=== PATIENT | male | born 1950 | race Caucasian/White ===

== ENCOUNTER → 2018-12-01 | Outpatient (REF) | payer MEDICARE ==
[~2018-12-01] MED LIST: ASPI1TAB PO; BABY81CH OR; LASI40TA9 PO; LEVO75TA4 PO; LOSA50TA88 PO; METF-723 PO; MULTCAP PO; MULTIVIT PO; PERC5TAB8 OR; PERCOCET PO; vitamin D
== END ==
LOC: M SFHCPLAZ 17:42
PROVIDERS: ATTEND Dermatology
DX: L82.1 Other seborrheic keratosis (principal); L81.4 Other melanin hyperpigmentation; L57.0 Actinic keratosis; D22.39 Melanocytic nevi of other parts of face

== ENCOUNTER 2025-07-26 07:46 | Day surgery (SDC) | payer MEDICARE ==
[~2025-07-26] VITALS: Ht 170.2 cm; Wt 77.1 kg
[~2025-07-26 07:46] MED LIST changes: -ASPI1TAB PO; +ASPI81TA26 PO; +FAMO20TA PO; +LEVO88TA3; +LIDOCAINE 2% 100 MG/5 ML SDV (FOR ANES.) As Ordered ONE; +LOSA50TA28 PO; -LOSA50TA88 PO; +METF-1201 PO; -METF-723 PO; +MULTTAB61 PO; +OMEP-173
[2025-07-26 09:19] VITALS: TEMP 97.9
[2025-07-26 09:41] VITALS: BP 160/90; O2SAT 98
== END 2025-07-26 09:47 | disposition home or self-care (01) ==
LOC: M OPP 07:46
PROVIDERS: ATTEND Internal Medicine Gastroenterology
DX: K22.89 Other specified disease of esophagus (principal); R13.10 Dysphagia, unspecified; Z79.82 Long term (current) use of aspirin; Z79.84 Long term (current) use of oral hypoglycemic drugs; Z79.899 Other long term (current) drug therapy
CPT/HCPCS: 43239; 88305; J3010

== ENCOUNTER → 2025-08-14 | Outpatient (CLI) | payer MEDICARE ==
[~2025-08-14] MED LIST changes: -LIDOCAINE 2% 100 MG/5 ML SDV (FOR ANES.) As Ordered ONE
== END ==
LOC: M PLARAD 11:22
PROVIDERS: ATTEND Specialist
DX: C20 Malignant neoplasm of rectum (principal)
CPT/HCPCS: 78815; A9552

== ENCOUNTER → 2025-09-05 | Outpatient (CLI) | payer MEDICARE ==
[2025-09-05 10:52] VITALS: TEMP 97.7
[2025-09-05] MEDS: ceFAZolin SODIUM 2 GM in DEXTROSE 5% (D5W) ADV/MINI-BAG 50 ML IV ONE (11:18)
[2025-09-05] MEDS: MIDAZOLAM INJ 2 MG/2 ML VIAL IV PRN (11:55)
[2025-09-05] MEDS: NS (Normal Saline) 0.9% 1,000 ML IV SCH (11:56)
[2025-09-05] MEDS: LIDOCAINE 1% MDV 20 ML VIAL SC SCH (12:11)
[2025-09-05 12:25] VITALS: BP 139/82; O2SAT 98
== END ==
LOC: M IRPRO 10:23
PROVIDERS: ATTEND Specialist
DX: C20 Malignant neoplasm of rectum (principal)
CPT/HCPCS: 36561; 76937; 99152; J0688; J1642; J2250; J3010